=== PATIENT | female | born 1970 | race Caucasian/White ===

== ENCOUNTER 2024-08-04 07:58 | Day surgery (SDC) | payer OTHER ==
[2024-07-29 08:33] VITALS: BMI 44.1
[2024-08-04] MEDS ORDERED: ACETAMINOPHEN INJECTION 100 ML ONE (09:38)
[2024-08-04] MEDS ORDERED: KETOROLAC TROMETHAMINE 30 MG/1 ML VIAL ONE (09:38)
[2024-08-04 10:32] VITALS: TEMP 97.9
[2024-08-04 11:09] VITALS: BP 125/74; PULSE 63; RESP 15
== END 2024-08-04 11:15 | disposition home or self-care (01) ==
LOC: JASU-ENDO 07:58
PROVIDERS: ATTEND Internal Medicine Gastroenterology
PROC: 0DB68ZX Excision of Stomach, Via Natural or Artificial Opening Endoscopic, Diagnostic (ICD-10-PCS; 2024-08-04)
PROC: 0DB78ZX Excision of Stomach, Pylorus, Via Natural or Artificial Opening Endoscopic, Diagnostic (ICD-10-PCS; 2024-08-04)
PROC: 06LY8CC Occlusion of Hemorrhoidal Plexus with Extraluminal Device, Via Natural or Artificial Opening Endoscopic (ICD-10-PCS; principal; 2024-08-04 09:00)
DX: Z12.11 Encounter for screening for malignant neoplasm of colon (principal); K64.8 Other hemorrhoids; K57.30 Diverticulosis of large intestine without perforation or abscess without bleeding; D51.0 Vitamin B12 deficiency anemia due to intrinsic factor deficiency
CPT/HCPCS: 88305-TC; 88342-TC